=== PATIENT | female | born 2000 ===

== ENCOUNTER → 2024-04-12 10:00 | Outpatient (REF) | payer OTHER, SELFPAY ==
--- NOTE | 2024-04-12 | HM_ITS ---
Conclusion: 1. Patient was monitored for total period of 3 days 2. Baseline was normal sinus rhythm with average heart of 81 beats per minute 3. No significant pauses noted 4. Patient marked the counter 29 times correlating mostly with sinus rhythm. Three of the times it correlated with isolated PVCs with total burden of PVCs during the entire 3 days was 3 MTDD
--- OUTSIDE RECORDS SUMMARY | 2024-04-12 19:46 | XMS_ITS ---
Author Organization [facility] Address [address] [place] [id number] Care Team Providers Care College Service Officer Name Role Phone Sudarshan Stern MD Primary Care Provider Comfort Hernández Unavailable Migration, Provider Unavailable Unavailable Allergies Allergen (clinical drug ingredient) Drug/Non Drug Allergy documented on EMR Reaction Allergy Type Onset Date Status sertraline Zoloft RASH Drug Allergy Active [facility] Conversion Encounter Medications Medication SIG (Take, Route, Frequency, Duration) Notes Start Date End Date Status Monistat 3 4 % 1 appful intravaginally once a day (at bedtime) for 3 day(s) 01/02/2018 Not-Taking Diflucan 150 MG 1 tab(s) orally once for 1 dose(s) 01/02/2018 Not-Taking Albuterol Sulfate HFA 108 (90 Base) MCG/ACT 2 puff(s) inhaled every 6 hours prn SOB for 30 days 07/06/2022 Active Penicillin V Potassium 500 MG 1 tab(s) orally every 6 hours for 7 days 07/06/2022 Active Benzonatate 100 MG 1 cap(s) orally 3 times a day for cough for 5 days Active OCP *Please review for potential replacement for e-prescription and drug interaction check* Active NO OTC MEDICATIONS . *Please review for potential replacement for e-prescription and drug interaction check* Active Venlafaxine HCl 25 MG 1 tab(s) orally daily Not-Taking Ondansetron HCl 4 MG 1 tab(s) orally every 8 hours Active Ritalin 10 MG 1 tab(s) orally 2 times a day for 30 day(s) Active Encounters Encounter Location Date Provider Diagnosis [facility] [address] [place] [address] [phone] 04/01/2024 Provider Migration Laryngotracheobronchitis J40 Assessments Encounter Date Diagnosis (ICD Code) Assessment Notes Treatment Notes Treatment Clinical Notes Section Notes 04/01/2024 Laryngotracheobronch itis (ICD-10 - J40) Plan Of Treatment Medication Medication Name Sig Start Date Stop Date Notes Albuterol Sulfate HFA 108 (9 0 Base) MCG/ACT 2 puff(s) inhaled every 6 hours prn SOB for 30 days 07/06/2022 Penicillin V Potassium 500 MG 1 tab(s) o rally every 6 hours for 7 days 07/06/2022 Benzonatate 100 MG 1 cap(s) orally 3 ti mes a day for cough for 5 days Progress Notes * Ludy HAJIDOB: 0 (23 yo F)Acc No.[id number]:04/01/2024 UNLOCKED PROGRESS NOTE Patient:Ludy CARREON Provider:? :2000???Age:23 Y???Sex:Female D ate:04/01/2024 Phone: Address:[facility], [id number] Pcp:Sudarshan Stern MD Subjective: * Chief Complaints: * ???1. [facility] To [facility] version Encounter. * Medical History:? * Medications:?Taking Ondanset radha HCl 4 MG Tablet 1 tab(s) orally every 8 hours , Taking Ritalin(Methylphenidate HCl) 10 MG Tablet 1 tab(s) orally 2 times a day , Taking OCP , Notes to Pharmacist: *Please review for potential replacement for e-prescription and drug interaction check*, Taking NO OTC MEDICATIONS . , Notes to Pharmacist: *Please review for potential replacement for e-prescription and drug interaction check*, Not-Taking/PRN Venlafaxine HCl 25 MG Tablet 1 tab(s) orally daily , Not-Taking/PRN Diflucan 150 MG Tablet 1 tab(s) orally once , Not-Taking/PRN Monistat 3(Miconazole Nitrate) 4 % Cream 1 appful intravaginally once a day (at bedtime) * Allergies:?Zoloft: RASH. Objective: * Vitals:? Assessment: * Assessment: 1.?Laryngotracheobronchitis - J40 (Primary)??? Plan: * Treatment: * * The named appointment provid er may or may not be the originator of this progress note, and it is not deemed complete until electronically signed by the appointment provider. Sign off status: Pending * Provider:? Date:?04/01/2024 Generated for Teresita mota/Jen/Lauraitting on:?04/12/2024 07:46 PM EST
--- OUTSIDE RECORDS SUMMARY | 2024-04-12 19:46 | XMS_ITS | Data Portability ---
Author Organization [facility] Address [address] [place] [address] Assessment No assessment recorded. Plan of Treatment Reminders Order Date Submit Date Provider Last Modified By Organization Details Last Modified Time Details Appointments None recorded. Lab H pylori urea breath test, co2 infrared 2019 DIGNA In-House Results, For Internal Use Only, Do Not Delete/merge, [id number] 0 20:54:07 calprotect in, stool 2019 [email or web address] Not available 0 22:32:13 CBC w/ diff 2019 [email or web address] Not available 0 22:32:14 Referral None recorded. Procedures colonoscop y procedure (PROC) 2020 021 jamaica Starr MD, [address] [place], [address], 1 09:17:02 upper endoscopy procedure (EGD) (PROC) 2020 021 jamaica Not available 1 09:17:16 Surgeries None recorded. Imaging None recorded. Medication Orders ondansetro n 4 mg disintegra ting tablet 2019 020 INTERFACE [id number], [address] [place], [address], 0 09:14:44 Miralax 17 gram/dose oral powder 2019 020 [email or web address] [id number], [address] [place], [address], 0 09:55:21 Patient TargetsNo targets recorded. Patient InstructionsNo instructions recorded. Reason for Referral None Reported. Results Created Date Observation Date Name Description Value Unit Range Abnormal Flag Note LastModifiedBy Organization Detail LastModifiedTime 01/28/20 20 01/28/2020 H pylor i urea breat h test, co2 infra red H. 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 The Holog ic Aptim a SARS- CoV-2 Assay is a nucle ic acid ampli ficat ion test using trans media karley ampli ficat ion (TMA) inten ded for the quali tativ e molec ular detec tion of RNA from SARS- CoV-2 in upper respi rator y speci mens from indiv idual s suspe cted of COVID -19 by their healt hcare provi bhanu. Aptim a SARS- CoV-2 Assay has been made avail able under the Emerg ency Use Autho rizat ion (EUA) A posit alivia test resul t indic ates that RNA from SARS- CoV-2 was detec karley. Nucle ic acid may persi st even after the virus is no longe r viabl e. A negat alivia test resul t indic ates that SARS- CoV-2 was not prese nt in the speci men above the limit of detec tion. Not Available [facility] [address] [facility] [place], [address], 04/25/2020 21:12:39 05/01/19 21 04/30/2020 pregn genaro test, urine ucg POC result BORDER negati ve Not Available [facility] (Lab) [address] [place], [address], 04/30/2020 12:15:29 05/01/19 21 04/30/2020 pregn genaro test, urine ucg POC result NEG negati ve Not Available [facility] (Lab) [address] [place], [address], 04/30/2020 14:36:19 05/01/19 21 04/30/2020 patho logy study endoscopy [facility] Hipolito Shirley [facility] Medic sarah faria M.D. Patho logy Depar tment Patho logis t-in Chief [address] [place] [address] Phone CLIA# [id number] ----- ----- ----- ----- ----- ----- ----- ----- ----- ----- ----- ----- ----- ----- ----- ----- ----- ----- -- PATIE NT: Marc BERNAL [facility] r: [id number] Age/S ex: 19/ Med Rec Numbe r: [id number] [id number] : [birth year] Locat ion: ENDOS Reg Dr.: SARAH MAYNARD M.D. ----- ----- ----- ----- ----- ----- ----- ----- ----- ----- ----- ----- ----- ----- ----- ----- ----- ----- -- SPEC : [id number] RECD: 04/30- 531 STATU S: GEO MARCH NUM: [id number] RENETTA: 04/30- SUBM DR: SARAH MAYNARD M.D. ENTER ED: 04/30-1 532 SP TYPE: ENDO OTHR DR: BAAKL INI,M ICHAE L M.D. ORDER ED: HE/5, RYLAND/4 ----- ----- ----- ----- ----- ----- ----- ----- ----- ----- ----- ----- ----- ----- ----- ----- ----- ----- -- FINAL DIAGN OSIS: A)Asc endin g colon , biops y: - Colon ic mucos a withi n sarah l limit s. - No diagn ostic micro scopi c colit is ident ified . - No activ e infla mmati on or dyspl carlos ident ified . B)Tra nsver se colon , biops y: - Colon ic mucos a withi n sarah l limit s. - No diagn ostic micro scopi c colit is ident ified . - No activ e infla mmati on or dyspl carlos ident ified . C)Sig moid colon , biops y: - Colon ic mucos a withi n sarah l limit s. - No diagn ostic micro scopi c colit is ident ified . - No activ e infla mmati on or dyspl carlos ident ified . D)Sma ll bowel , biops y: - Small intes tinal mucos a withi n sarah l limit s. - No evide nce of Whipp le's disea se, colleen c sprue or makayla ite ident ified in this speci men. ----- ----- ----- ----- ----- ----- ----- ----- ----- ----- ----- ----- ----- ----- ----- ----- ----- ----- -- CLINI JESSA HISTO RY: Abdom inal pain. Nause a. TISSU ES: A. Ascen ding Colon B. Trans verse Colon C. Sigmo id Colon D. Small Bowel GROSS DESCR IPTIO N: 4 parts . A. Speci men is recei trevon in forma [facility], label ed with patie nt's name and asce nding . It consi sts of 2 piece s of trejo tissu e measu ring 0.4 cm and 0.6 cm which are submi tted entir kellen in 1 casse tte. B. Solo anne is recei trevon in [facility], label ed with patie nt's name and matthew svers e . It consi sts of 2 piece s of trejo tissu e measu ring 0.3 cm and 1.3 cm which are submi tted entir kellen in 1 casse tte. C. Specmarina anne is recei trevon in [facility], label ed with patie nt's name and sigm oid . It consi sts of a 0.5 cm piece of trejo-w sherri tissu e submi tted entir kellen in 1 casse tte. D. Solo anne is recei trevon in [facility], label ed with patie nt's name and smal l bowel . It consi sts of 4 piece s of trejo tissu e measu ring 0.3-0 .4 cm which are submi tted entir kellen in 1 casse tte. Rosalia PIEDRA M.D. IN,SARAH TAM : Hemat oxyli n and Eosin /5, Surgi jessa Path Level IV/88 305/4 ----- ----- ----- ----- ----- ----- ----- ----- ----- ----- ----- ----- ----- ----- ----- ----- ----- ----- -- Selena d (sign ature on file) _ Kashif Fitzgerald MD 05/01 1520 ----- ----- ----- ----- ----- ----- ----- ----- ----- ----- ----- ----- ----- ----- ----- ----- ----- ----- -- Not Available [facility] (Lab) [address] [place], [address], 05/01/2020 15:21:31 05/01/19 21 04/30/2020 ureas e, quali tativ e, tissu e H pylori biopsy Negati ve negati ve Not Available [facility] (Lab) [address] [place], [address], 05/01/2020 17:47:28 Result Notes None recorded. Problems No Known Problems Medical Equipment None Reported. Allergies Allergen ID Allergen Name Allergen Category Reaction Reaction Severity Criticality Documentation Date Start Date Code Code System Note Provider Name and Address Organization Details Recorded Time 697351 Zoloft medicatio n Not available Not available Not available 01/28/2020 23968 RxNorm Britney Parsons [place], [place] - [facility] 0 08:32:14 Medications Name Sig Start Date Stop Date Status Note LastModified by Organization Details LastModified Time Miralax 17 gram/dose oral powder 1 scoop daily 2019 active Not Available Not Available Not Avai lable methylphenidate 10 mg tablet TAKE 1 TABLET BY MOUTH EVERY DAY active Not Available Not Available No t Available sulfamethoxazol e 800 mg-trimethoprim 160 mg tablet TAKE 1 TABLET BY MOUTH TWICE A DAY active Not Available Not Available No t Available ondansetron 4 mg disintegrating tablet TAKE 1-2 TABLETS BY MOUTH NEEDED FOR NAUSEA 2021 active Not Available Not Available Not Avai lable 03/05 () 1 mg-20 mcg tablet TAKE 1 TABLET EVERY DAY active Not Available Not Available No t Available 03/05 (28) 1 mg-20 mcg (21)/75 mg (7) tablet TAKE 1 TABLET BY MOUTH EVERY DAY active Not Available Not Available No t Available Ritalin active Not Available Not Avail able Not Available Tums active Not Available Not Availa ble Not Available Vitals Date Recorded Body weight Body mass index (BMI) Body mass index (BMI) Percentile per age and sex Body height Systolic blood pressure Diastolic blood pressure Provider Name and Address Organization Details Last Updated DateTime 0 80064.5 3 g 19 kg/m2 15 % 165.1 cm 120 mm[Hg] 60 mm[Hg] Britney Parsons [facility] 0 08:38:10 Date Recorded Body height Body mass index (BMI) Percentile per age and sex Body mass index (BMI) Body weight Systolic blood pressure Diastolic blood pressure Provider Name and Address Organization Details Last Updated DateTime 1 165.1 cm 15 % 19 kg/m2 91646.5 3 g 118 mm[Hg] 60 mm[Hg] Britney Parsons [facility] 1 10:19:05 Social History Question Answer Notes LastModified by Wimba Details LastModified Time Tobacco Smoking Status [facility] 08:33:15 What Is Your Level Of Alcohol Consumption? None Information not available 01/28/2020 What Is Your Level Of Caffeine Consumption? Occasional Information not available 01/28/2020 What Type Of Diet Are You Following? REGULAR Information not available 01/28/2020 Do You Or Have You Ever Used E-cigarettes Or Vape? Never Used Electronic Cigarettes Information not available 01/28/2020 Marital Status Single Informatio n not available 01/28/2020 Do You Or Have You Ever Used Smokeless Tobacco? Never Used Smokeless Tobacco Information not available 01/28/2020 How Much Tobacco Do You Smoke? No Information not available 01/28/2020 Sex: Unknown Functional Status Question Answer Note LastModified by Wimba Details LastModified Time What is your exercise level? Occasional Information not available 01/28/2020 Mental Status None recorded. Family History Nothing Reported. Medical History No medical history recorded. Gynecological HistoryNo gynecological history recorded. Obstetrics History GPAL:G 0 P 0 0 0 0 Past Encounters Encounter ID Performer Location Encounter Start Date Encounter Closed Date Diagnosis/Indication Diagnosis SNOMED-CT Code Diagnosis ICD10 Code Diagnosis Note [id number] [facility] [address] [address] 01/28/2020 08:25:50 01/28/2020 09:16:08 Nausea 076869249 R11.0 Suspect IBS/functi onal nausea. Check H.Pylori and start Zofran at bedtime since her nausea is worse in the PM. If nausea continues, possibly arrange gastric emptying study Altered sravanthi wel function 82000002 R19.4 Suspect IBS alternatin g, but constipati on predominan t. Start Miralax QOD. Check fecal jessa for signs of IBD and CBC as unclear if this was done given rectal bleeding. If this continues despite mIralax, consider colonoscop y [id number] [facility] [address] [address] 03/27/2020 10:08:18 03/27/2020 10:44:38 Nausea 153536944 R11.0 Likely functional nausea, but will arrange EGD. Taking Zofran with moderate effect. Lower abdominal pain 545 89701 R10.30 Now having abdominal pain and still some mild rectal bleeding. will arrange colonoscop y. Suspect IBS. Pre and procedure reviewed in detail Health Concerns Section Related Observation LastModified by Organization Detai ls LastModified Time None Recorded Concern Status LastModified by Organization Details LastModified Time None Recorded Advance Directives Directive None Recorded Payers Encounter Date Sequence Insurance Name Policy Number Policy Farmer Covered Member ID Farmer Member ID Guarantor Name 01/28/2020 1 [facility] [facility] Ludy Lindsey Angelo [id number] Ludy Stephens 03/27/2020 1 [facility] [place] [place] [facility] Ludy Lindsey Angelo [id number] Ludy Stephens Notes Date Note Type Note Provider Name and Address Organization Details Recorded Time 01/28/2020 text/html 19 y/o female comes in with complaints of worsening nausea which occurs mostly at night and sometimes wakes her up out of sleep at 3-4AM. No associated vomiting, states she has emetophobia so tries to stop herself from vomiting as much as possible. She has abdominal bloating and gets constipation which resulting loose stools after a few days of not moving her bowels. She notices symptoms worsen with Ritalin so she tries not to take it as much. Worse with fried foods so she eats a mostly healthy diet. Seeing some blood on toilet paper when she wipes, but off and on. She denies any acid reflux. CMP and celiac testing was normal. For constipation she tried Metamucil, but this made her bloating worse. [facility]A [facility] [address] [place], [address], [facility] 01/28/2020 13:16:34 03/27/2020 text/html Ludy is here fo r F/U. UBT was negative, and CBC and fecal jessa were normal. She states her nausea continues but is slightly better, but now having more lower abdominal pain and still having off and on rectal bleeding (slight). She states the pain will wake her up out of sleep. Her constipation is being controlled by Miralax. BAR[facility]A [facility] [address] [place], [address], [facility] 03/27/2020 20:49:30 OBGyn Episode No OBEpisode recorded.
--- OUTSIDE RECORDS SUMMARY | 2024-04-12 19:47 | XMS_ITS | Continuity of Care Document ---
Author Organization [facility] Address [address] [place] [address] Phone Care Team Providers Care Modular Set Crew Member Name Role Phone Unavailable Unavailable Unavailable Procedures Procedure Date INITIAL DIAGNOSTIC INTERVIEW 60 MIN. Jan Advance Directives Directive Yes / No Effective Date File Name No Information Encounters Encounter Description Practice Location Reason(s) For Visit Diagnoses Date Provider Providers Copied on Encounter [facility], [address], [place], [id number], [place] tel:[phone] [facility] Major depressive disorder, single episode, unspecified 7 No Information INITIAL DIAGNOSTIC INTERVIEW 60 MIN. [facility], [address] [place], [place], [id number], [place] tel:[phone] [facility] Major depressive disorder, single episode, unspecified [facility]. [address] [place] [address], [id number], [place]. tel:[phone] Family History Family Member Type Diagnosis Age At Onset No Information Payers Payer name Insurance type Covered alliance party ID Authoriza tion(s) Medicaid [id number] Social History Type Description Quantity Date Captured Comments Alcohol Use Details Unknown Caffeine Use Details Unknown Tobacco Use Status No Information Smoking Status No Information Sex Female Chief Complaint And Reason For Visit No Information Reason For Referral Reason For Referral No Information History Of Present Illness Encounter Date Complaint History Of Prese nt Illness No Information Functional Status Date Functional Assessmen t No Information Instructions Date Instruction Additional Infor mation No Information Assessments Type Assessment Date assessment Major depressive disorder, singl e episode, unspecified Patient Care Teams Name Effective Dates (start - stop) Status Members No Information
--- OUTSIDE RECORDS SUMMARY | 2024-04-12 19:47 | XMS_ITS | Patient Health Record ---
Author Organization [facility] Address [address] [place], [place] [id number] Care Team Providers Care Sign Hanger Supervisor Name Role Phone Sudarshan Stern MD Primary Care Provider Comfort Hernández Unavailable Migration, Provider Unavailable Unavailable Allergies Allergen (clinical drug ingredient) Drug/Non Drug Allergy documented on EMR Reaction Allergy Type Onset Date Status sertraline Zoloft RASH Drug Allergy Active Reason For Referral No Information Medications Medication SIG (Take, Route, Frequency, Duration) Notes Start Date End Date Status OCP *Please review for potential replacement for e-prescription and drug interaction check* Active NO OTC MEDICATIONS . *Please review for potential replacement for e-prescription and drug interaction check* Active Monistat 3 4 % 1 appful intravaginally once a day (at bedtime) for 3 day(s) 01/02/2018 Not-Taking Venlafaxine HCl 25 MG 1 tab(s) orally daily Not-Taking Diflucan 150 MG 1 tab(s) orally once for 1 dose(s) 01/02/2018 Not-Taking Albuterol Sulfate HFA 108 (90 Base) MCG/ACT 2 puff(s) inhaled every 6 hours prn SOB for 30 days 07/06/2022 Active Ondansetron HCl 4 MG 1 tab(s) orally every 8 hours Active Penicillin V Potassium 500 MG 1 tab(s) orally every 6 hours for 7 days 07/06/2022 Active Benzonatate 100 MG 1 cap(s) orally 3 times a day for cough for 5 days Active Ritalin 10 MG 1 tab(s) orally 2 times a day for 30 day(s) Active Social History Tobacco Use: Social History Observation Description Date Details (start date - stop date) Never Smoker NA - NA Tobacco use (structured) Question Answer Notes Tobacco Use: Never tobacco user Encounters Encounter Location Date Provider Diagnosis [facility] [address], [place] [id number] 04/01/2024 Provider Migration Laryngotracheobronchitis J40 Assessments Encounter Date Diagnosis (ICD Code) Assessment Notes Treatment Notes Treatment Clinical Notes Section Notes 04/01/2024 Laryngotracheobronch itis (ICD-10 - J40) Plan Of Treatment No Information Insurance Providers Payer Name Payer Address Payer Phone Subscriber Number Group Number Insured Name Patient Relationship to Insured Coverage Start Date Coverage End Date [facility] Claims Department [address] [address] [place] [id number] [phone] [id number] Yordy Stephens Parent Medical (General) History Medical History History ICD Code ADD
--- OUTSIDE RECORDS SUMMARY | 2024-04-12 19:47 | XMS_ITS | Clinical Summary ---
Author Organization [facility] Address [address] [place] [address] Care Team Providers Care Machine Former Name Role Phone Sudarshan Stern MD Primary Care Provider [phone] Allergies Active Allergy Reactions Criticality Noted Date Comments Escitalopram Other (See Comments) 03/19/2022 Sensory seizures Sertraline Hives 03/13/2021 Medications * This document contains information received from the source organization and may not represent a complete record from that organization. dextroamphetamine -amphetamine (ADDERALL XR) 20 MG extended release 24 hr capsuleIndication s:attention-defic it hyperactivity disorder Take 1 capsule (20 mg total) by mouth daily. 30 capsule 6 Active FLUoxetine (PROZAC) 10 MG tablet Take 1 tablet (10 mg total) by mouth daily. 30 tablet 1 6 Active Additional Information Patient not taking.Reason: Therapy Complete, Reported on 03/13/2021 methylphenidate HCl (RITALIN ORAL) Ritalin Active norethindrone-eth inyl estradiol (,) 1 mg-20 mcg (21)/75 mg (7) tabletIndications :Uses control 03/05 () 1 mg-20 mcg (21)/75 mg (7) tablet 84 tablet 3 3 Active Active Problems Problem Noted Date Diagnosed Date Parent-child relational problem 12/23/2015 ADHD (attention deficit hype ractivity disorder), inattentive type 12/23/2015 MDD (major depressive disorder), single episode, moderate 2015 Resolved Problems Problem Noted Date Diagnosed Date Resolved Date Moderate single current epis ode of major depressive disorder 11/27/2015 2015 Social History Tobacco Use Types Packs/Day Years Used Date Smoking Tobacco: Never Smokeless Tobacco: Never Alcohol Use Standard Drinks/Week Comments No 0 (1 standard drink = 0.6 oz pur e alcohol) Comments Unknown Sex and Gender Information Value Date Recorded Sex Assigned at Not on file Legal Sex Female 3:00 AM EST Gender Identity Not on file Sexual Orientation Not on file Last Filed Vital Signs Vital Sign Reading Time Taken Comments Blood Pressure 98/54 03/19/2022 9:46 AM EST Pulse 96 12/23/2015 1:37 PM EST Temperature 37.2 ??C (99 ??F) 11/27/2015 2:42 PM EDT Respiratory Rate 18 11/27/2015 2:42 PM EDT Oxygen Saturation 100% 11/23/2015 3:50 PM EDT Inhaled Oxygen Concentration - - Weight 53.8 kg (118 lb 9.6 oz) 03/19/2022 9:46 A M EST Height 157.5 cm (5' 2 ) 11/27/2015 2:42 PM EDT Body Mass Index - - Plan of Treatment Health Maintenance Due Date Last Done Comments HPV VACCINE (1 - 3-dose series) 11/27/2014 HEPATITIS C SCREENING 11/27/2016 DTAP/TDAP/TD VACCINES (7 - Td or Tdap) 09/26/2021 09/27/2011, 02/22/2005, 06/06/2001, Additional history exists CHLAMYDIA SCREENING 03/13/2022 03/13/2021, 01/02/2018, 02/19/2016 INFLUENZA VACCINE (#1) 2023 COVID-19 IMMUNIZATION ( season) 2023 02/23/2021 Cervical Cancer Screening 03/13/2024 Pap Smear 03/13/2024 03/13/2021 ZOSTER VACCINE (1 of 2) 11/27/2049 09/07/2010, 11/28 RSV IMMUNIZATION (1 - 1-dose 75+ series) 11/27/2074 HEPATITIS B VACCINES Completed 03/03/2001, 03/29/2000, 01/25/2000 HIB VACCINES Completed 03/03/2001, 03/17, 01/25/2000 IPV VACCINES Completed 02/22/2005, 11/14, 03/29/2000, Additional history exists MMR VACCINES Completed 02/22/2005, 03/03/2001 VARICELLA VACCINES Completed 09/07/2010, 2000 HEPATITIS A VACCINES Completed 09/27/2011, 09/08/19 11 MENINGOCOCCAL ACYW VACCINE Aged Out 09/27/2011 N o longer eligible based on patient's age to complete this topic MENINGOCOCCAL B VACCINE Aged Out No l onger eligible based on patient's age to complete this topic ROTAVIRUS VACCINES Aged Out No longer eligible based on patient's age to complete this topic Procedures Procedure Name Priority Date/Time Associated Diagnosis Comments CHLAMYDIA TRAC PROBE, CERVICAL Routine 03/13/2021 10:57 AM EST Dysuria CYTOLOGY, STEAM FLATTENER Routine 03/13/2021 Encounter for gynecological examination from Last 3 Months or Most Recently Relevant to Health Maintenance Results * Chlamydia trac Probe, Cervical (03/13/2021 10:57 AM EST) Cervical Chlamydia Probe negative 03/16/2021 2:07 PM EST Cervical Chlamydia Probe Perf By Footnote 03/16/2021 2:07 PM EST Comment: Test Performed by: [facility] [place] [address] Specimen from genital system (specimen) 03/13/2021 10:57 AM EST Aaliyah Dean CNM BODY FLUIDS AND STOOLS ORDERAB LES Final Result Performing Organization Address [facility] Co de Phone Number [facility] [address] [place] [phone] * Cytology, STEAM FLATTENER (PAP) (03/13/2021) Specimen from genital system (specimen) 03/13/2021 03/17/2021 9:32 AM EST Aaliyah Dean CNM PATHOLOGY/CYTOLOGY ORDERABLES Final Result Performing Organization Address [facility] Co de Phone Number [facility] [address] [place] [phone] from Last 3 Months or Most Recently Relevant to Health Maintenance Insurance Care Teams Machine Former Relationship Specialty Start Date End Date Sudarshan Stern MD [address] [place] [address] PCP - General Internal Medicine 11/23/15
== END ==
LOC: HO.CARD 10:00
PROVIDERS: PCP Family Medicine; Visit Provider Family Medicine
DX: R00.2 Palpitations (principal)
CPT/HCPCS: 93242

== ENCOUNTER → 2024-04-12 11:00 | Outpatient (BNV) | payer OTHER, SELFPAY | PROVIDERS: PCP Family Medicine; Visit Provider Internal Medicine Cardiovascular Disease | DX: I49.3 Ventricular premature depolarization (principal) | CPT/HCPCS: 93244 ==